=== PATIENT | male | born 1950 | race Caucasian/White ===

== ENCOUNTER 2025-07-09 13:29 | Outpatient (CLI) | payer MEDICARE, SELFPAY ==
--- NOTE | ~2025-07-09 | PE_ITS ---
EXAMINATION: PET_PETPSMAST_PT DATE: 07/10/2025 08:49 INDICATION: Prostate cancer TECHNIQUE: 5.424 mCi of Illucix Ga-68([id number]) was administered i.v. Low dose computed tomography (CT) images were acquired from the base of the brain to the base of the brain to the proximal thighs for attenuation correction and anatomic localization. Positron emission tomography (PET) images were acquired in the same distribution beginning 66 minutes after injection. Images including fused PET/CT images were reconstructed in axial, coronal, and sagittal planes. Automated exposure control technique was employed. The dose-length product was 1041.85mGy-cm. COMPARISON: None FINDINGS: Head/neck: Typical pattern of physiologic increased activity in the lacrimal, parotid and submandibular glands as well as along the mucosa of the nasal and oral cavities, pharynx and hypopharynx. No pathologically enlarged cervical lymphadenopathy or suspicious foci of increased uptake in the visualized head or neck. Chest: Mild basilar and dependent atelectasis in both lungs. No suspicious pulmonary nodules, pneumonia, pulmonary edema or pleural effusion. Cardia megaly. No pericardial effusion. Thoracic aorta is normal in caliber. No pathologically enlarged or PSMA avid thoracic lymphadenopathy. Abdomen/pelvis/proximal thighs: Physiologic renal accumulation and excretion of activity in the kidneys, bladder and along portions of ureters. 4 mm nonobstructing stone at the upper pole of the left kidney. Prostatomegaly measuring 4.4 x 3.9 cm. There is mild increased uptake in the posterior peripheral zones with maximal SUV of 4.1 on the left and 3.2 on the right. Normal degree and slightly heterogenous pattern of increased uptake throughout the liver and spleen without radiologic correlate or dominant PSMA avid lesion. The gallbladder, pancreas and bilateral adrenal glands are normal. Moderate uptake scattered throughout the bowels with typical duodenal and proximal jejunal predominance and without radiologic correlate, also likely physiologic. Mild diverticulosis along the descending and sigmoid colon without adjacent from trace stranding to suggest diverticulitis. Normal appendix. No other abnormal foci of increased uptake or pathologically enlarged lymphadenopathy in the abdomen, pelvis or proximal thighs. Musculoskeletal: No suspicious lytic, blastic or abnormally PSMA avid bone lesions. IMPRESSION: 1. Mild increased uptake in the posterior aspect of the enlarged prostate which prostate cancer. No evident metastatic disease although sensitivity may be decreased given the low level of activity in the prostate. Reviewed, dictated and finalized at location A. IMPRESSION: 1. Mild increased uptake in the posterior aspect of the enlarged prostate which prostate cancer. No evident metastatic disease although sensitivity may be dec reased given the low level of activity in the prostate.
--- OUTSIDE RECORDS SUMMARY | 2025-07-09 13:49 | XMS_ITS | Clinical Summary ---
Author Organization [facility] Medical Office Building A Address [address] [place] [address] Care Team Providers Care Stopper Maker Name Role Phone Rainer Landry MD Primary Care Provider + Allergies No known active allergies Medications diclofenac DR (VOLTAREN) 75 mg EC tablet take 1 tablet by oral route 2 times every day 0 0 11/24/2016 Active Encounters Date Type Department Care Team Description 06/03/2025 7:16 AM CDT - 06/03/2025 11:59 PM CDT Hospital Encounter [address] [address] Microscopic hematuria Discharge Disposition: Discharge to home or self care 06/02/[address] [address] [place], January D. 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 Gender Identity Male 04/05/2021 8:17 AM CDT Sexual Orientation Not on file Obstetrics History Last Filed Vital Signs Vital Sign Reading Time Taken Comments Blood Pressure - - Pulse - - Temperature - - Respiratory Rate - - Oxygen Saturation - - Inhaled Oxygen Concentration - - Weight 84.2 kg (185 lb 9.6 oz) 11/24/2016 9:39 A M ANTISQUEAK APPLIER Height 174 cm (5' 8.5) 11/24/2016 9:39 AM ANTISQUEAK APPLIER Body Mass Index 27.81 11/24/2016 9:39 AM ANTISQUEAK APPLIER Plan of Treatment Health Maintenance Due Date Last Done Comments Colon Cancer Screening-Colonoscopy 1950 Depression Screening 1952 Fall Risk Assessment 1950 Hepatitis C Screening 1950 DTaP/Tdap/Td Vaccine (1 - Tdap) 1963 Hepatitis B Screening 1970 Pneumococcal vaccine 65+ (1 of 1 - PCV) 2002 Zoster Vaccine (1 of 2) 2002 Well Visit 65+ 2017 Influenza Vaccine (#1) 2025 07/22/2019, 2017 Prostate Cancer Screening-PSA Discontinued 02/06/2019 Abdominal Aortic Aneurysm (AAA) Screen Completed , 02/06/2019 Procedures Procedure Name Priority Date/Time Associated Diagnosis Comments CT UROGRAM Schedule Routine, Read Routine (OP Routine) 06/03/2025 8:14 AM CDT Microscopic hematuria CT ABDOMEN PELVIS WO CONTRAST Schedule Routine, Read Routine (OP Routine) 04/08/2021 2:50 PM CDT Abdominal pain, unspecified abdominal location PSA SCREEN Routine 02/06/2019 3:07 PM CDT from Last 3 Months or Most Recently Relevant to Health Maintenance Results * CT Urogram W Contrast No 3D (06/03/2025 8:14 AM CDT) Anatomical Region Laterality Modality Body N/A Computed Tomogra phy 06/21/2025 7:33 PM CDT Narrative 06/21/2025 7:42 PM CDT EXAM DESCRIPTION: CT UROGRAM W CONTRAST NO 3D REASON FOR STUDY: Microscopic Hematuria Pt reports episode of microscopic hematuria, no other complaints, hx of prostate cancer TECHNIQUE: Precontrast images of the abdomen. Abdomen and pelvis images with intravenous and without oral contrast using helical scanning technique with dynamic intravenous contrast injection. Corticomedullary, nephrographic, excretory phase images were acquired. Reconstructed coronal and sagittal MPR images reviewed. All images stored on PACS. Automated exposure control was used as a dose optimization technique for this examination. CONTRAST TYPE/DOSE: 75mL of IOVERSOL 350 MG IODINE/ML INTRAVENOUS SYRINGE injected via intravenous COMPARISON: 04/08/2021 described liver cyst and hemangioma. Urinary bladder wall thickening prostate enlargement FINDINGS: URINARY TRACT: Pre enhanced images show a mid left renal stone 5 mm and calyx new since previous study. Otherwise pre enhanced images of the kidneys are normal. No calcifications seen along the course of the ureters. There is diffuse urinary bladder wall thickening and prostate enlargement with prostatic calculi midline. Postcontrast nephrogram phase shows normal enhancement. A few small benign renal cysts. The collecting system on the pyelogram phase is smooth and normal with no uro epithelial abnormalities. The renal pelvis and ureters are not dilated. 5 minutes delayed images show contrast in the urinary bladder confirming thickening of the delgado and there is also median lobe extension into the bladder base, correlate with PSA. Ureters are seen all the way down to the bladder appear unremarkable. ABDOMEN/PELVIS: Lung bases are clear. There is a 1.8 cm low attenuating lesion in the right hepatic lobe which appears isodense on the delayed images probably a small hemangioma. Unchanged. Liver and spleen are nonenlarged. No gallstones. Stomach over distended with fluid. Pancreas enhances uniformly. Aorta normal in caliber with calcific plaque. No adrenal masses. The stomach otherwise normal. Small bowel is nondilated. No bowel wall thickening. Appendix normal. Stool pattern normal. No diverticulitis. No adenopathy in the abdomen or pelvis. No ascites or ventral hernia of significance. Bony structures show osteopenia. IMPRESSION: 1. 5 mm stone in the calyx of the mid left kidney otherwise normal urinary tracts including ureters.. Bladder has mild diffuse thickening and the prostate is enlarged particularly the median lobe. Prostatism is suspected. Correlate with PSA. Prostate appeared enlarged on the 04/08/2021 study. 2. No other significant abnormalities THIS IS AN ELECTRONICALLY VERIFIED FINAL REPORT 06/21/2025 7:42 PM - Electronically signed by Samm Julien M.D. DA: DEONTE Report ID: [id number] Reading Location: [place] [address] Procedure Note Samm Julien MD - 06/21/2025 EXAM DESCRIPTION: CT UROGRAM W CONTRAST NO 3D REASON FOR STUDY: Microscopic Hematuria Pt reports episode of microscopic hematuria, no other complaints, hx of prostate cancer TECHNIQUE: Precontrast images of the abdomen. Abdomen and pelvis imageswith intravenous and without oral contrast using helical scanning techniquewith dynamic intravenous contrast injection. Corticomedullary, nephrographic, excretory phase images were acquired. Reconstructed coronal and sagittalMPR images reviewed. All images stored on PACS. Automated exposure control was used as a dose optimization technique forthis examination. CONTRAST TYPE/DOSE: 75mL of IOVERSOL 350 MG IODINE/ML INTRAVENOUSSYRINGE injected via intravenous COMPARISON: 04/08/2021 described liver cyst and hemangioma. Urinarybladder wall thickening prostate enlargement FINDINGS: URINARY TRACT: Pre enhanced images show a mid left renal stone 5 mm and calyx new since previous study. Otherwise pre enhanced images of the kidneys are normal.No calcifications seen along the course of the ureters. There is diffuseurinary bladder wall thickening and prostate enlargement with prostatic calculi midline. Postcontrast nephrogram phase shows normal enhancement. A few smallbenign renal cysts. The collecting system on the pyelogram phase is smooth and normal with no uro epithelial abnormalities. The renal pelvis and uretersare not dilated. 5 minutes delayed images show contrast in the urinarybladder confirming thickening of the delgado and there is also median lobe extension into the bladder base, correlate with PSA. Ureters are seen all the waydown to the bladder appear unremarkable. ABDOMEN/PELVIS: Lung bases are clear. There is a 1.8 cm low attenuating lesion in theright hepatic lobe which appears isodense on the delayed images probably a small hemangioma. Unchanged. Liver and spleen are nonenlarged. No gallstones. Stomach over distended with fluid. Pancreas enhances uniformly. Aortanormal in caliber with calcific plaque. No adrenal masses. The stomach otherwise normal. Small bowel is nondilated. No bowel wall thickening. Appendix normal. Stool pattern normal. No diverticulitis. No adenopathy in the abdomen or pelvis. No ascites or ventral hernia of significance. Bony structures show osteopenia. IMPRESSION: 1. 5 mm stone in the calyx of the mid left kidney otherwise normalurinary tracts including ureters.. Bladder has mild diffuse thickening and the prostate is enlarged particularly the median lobe. Prostatism issuspected. Correlate with PSA. Prostate appeared enlarged on the 04/08/2021 study. 2. No other significant abnormalities THIS IS AN ELECTRONICALLY VERIFIED FINAL REPORT 06/21/2025 7:42 PM - Electronically signed by Samm Julien M.D. DA: DEONTE Report ID: [id number] Reading Location: [place] [address] Elian Connors MD IMG CT PROCEDURES Final Result * CT Abdomen Pelvis WO Contrast (04/08/2021 2:50 PM CDT) Anatomical Region Laterality Modality Body N/A Computed Tomogra phy 04/08/2021 3:22 PM CDT Impressions 04/08/2021 3:22 PM CDT 1. Hemangioma and cysts of the liver unchanged from previous imaging. 2. Normal appendix. 3. Mild thickening of the wall of the urinary bladder. This may be due to bladder outlet obstruction or cystitis. 4. Mild prostatomegaly with possibility of a nodule and calcification correlate with additional prostate ultrasound imaging and/or PSA values Electronically signed by: Isra Prather M.D. Narrative 04/08/2021 3:22 PM CDT EXAMINATION: CT ABDOMEN PELVIS WO CONTRAST DATE: 04/08/2021 2:30 PM COMPARISON: 02/06/2019 MR imaging for 2219 TECHNIQUE: 2-D CT of the abdomen and pelvis was obtained without contrast FINDINGS: Scans through the lung bases are unremarkable. The heart size is normal. No evidence of a pleural effusion. There is a small cyst in the dome of the liver. There is an vague hypodense lesion in the anterior left lobe of the liver which is consistent with the previously demonstrated hemangioma. There is a 2.5 cm low-density lesion in the right lobe of the liver previously documented as a cyst. The gallbladder, pancreas and spleen appear normal. No evidence of free air or free fluid in the abdomen. The kidneys and adrenal glands appear normal. No evidence of retroperitoneal adenopathy. The abdominal aorta is unremarkable. The appendix is normal. No evidence of bowel obstruction. No inflammatory lesion is seen. There is diffuse thickening of the wall of the urinary bladder. There are calcifications within a moderately enlarged prostate gland. The calcifications are forming a rim-like outline that could be the margin of a median lobe nodule. No significant bony abnormality is seen. Procedure Note Isra Prather MD - 04/08/2021 EXAMINATION: CT ABDOMEN PELVIS WO CONTRAST DATE: 04/08/2021 2:30 PM COMPARISON: 02/06/2019 MR imaging for 2219 TECHNIQUE: 2-D CT of the abdomen and pelvis was obtained without contrast FINDINGS: Scans through the lung bases are unremarkable. The heart size is normal. No evidence of a pleural effusion. There is a small cyst in the dome of the liver. There is an vague hypodense lesion in the anterior left lobe of the liver which is consistent with the previously demonstrated hemangioma. There is a 2.5 cm low-density lesion in the right lobe of the liver previously documented as a cyst. The gallbladder, pancreas and spleen appear normal. No evidence of free air or free fluid in the abdomen. The kidneys and adrenal glands appear normal. No evidence of retroperitoneal adenopathy. The abdominal aorta is unremarkable. The appendix is normal. No evidence of bowel obstruction. No inflammatory lesion is seen. There is diffuse thickening of the wall of the urinary bladder. There are calcifications within a moderately enlarged prostate gland. The calcifications are forming a rim-like outline that could be the margin of a median lobe nodule. No significant bony abnormality is seen. IMPRESSION: 1. Hemangioma and cysts of the liver unchanged from previous imaging. 2. Normal appendix. 3. Mild thickening of the wall of the urinary bladder. This may be due to bladder outlet obstruction or cystitis. 4. Mild prostatomegaly with possibility of a nodule and calcification correlate with additional prostate ultrasound imaging and/or PSA values Electronically signed by: Isra Prather M.D. Rainer Landry MD IMG CT PROCEDURES Final Result * (ABNORMAL) PSA screen (02/06/2019 3:07 PM CDT) PSA-Total 6.31(H) <=5.40 ng/mL HILARY JIMÉNEZ Comment: Interpretive Data AGE SEX REFERENCE INTERVAL 0 minutes-150 years Female None 0 minutes-49 years Male None 50-59 years Male 0-3.90 60-69 years Male 0-5.40 70-79 years Male 0-6.20 80-150 years Male 0-6.20 Current interpretive data last revised 2018. Blood specimen (specimen) 02/06/2019 3:07 PM CDT 02/06/2019 3:07 PM CDT Narrative HILARY JIMÉNEZ - 02/06/2019 4:13 PM CDT us Rainer Landry MD LAB BLOOD ORDERABLES Fin al Result [facility] [id number] Department [place] [address] from Last 3 Months or Most Recently Relevant to Health Maintenance Insurance MEDICARE COMMERCIAL GENERIC MEDICARE [facility] Address: [address] [address] [place] [address] COMMERCIAL GENERIC [employer] MEDICARE GOLD AETNA MEDICARE GOLD Care Teams Stopper Maker Relationship Specialty [place] [address] [address] [facility] [address] [place] [address] PCP - General 01/05/10
--- OUTSIDE RECORDS SUMMARY | 2025-07-09 13:49 | XMS_ITS | Encounter Summary ---
Author Organization [facility] Healthcare Address [address] [place] [address] Care Team Providers Care Outpatient Dietitian Name Role Phone Rainer Landry MD Primary Care Provider + Reason for Referral * Diagnostic Imaging (Routine) - Closed Specialty Diagnoses / Procedures Referred By Contac t Referred To Contact Radiology Diagnoses Microscopic hematuria Procedures CT Urogram W Contrast No 3D CT ABDOMEN PELVIS W WO CONTRAST Elian Connors MD [address] [address] Phone: tel: fax: [address] [phone] Referral ID Status Reason Start Date Expiration Date Visits Re quested Visits Authorized [id number] Closed 05/19/2025 11/15/2025 1 1 Encounter Details Date Type Department Care Team (Late st Contact Info) Description 05/01/2025 Community Orders [facility] EpicCare Link Elian Connors MD [address] [address] Microscopic hematuria (Primary Dx) Social History Tobacco Use Types Packs/Day Years Used Date Smoking Tobacco: Former Alcohol Use Standard Drinks/Week Comments Yes 0 (1 standard drink = 0.6 oz pur e alcohol) Sex and Gender Information Value Date Recorded Sex Assigned at Not on file Legal Sex 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 DA: DEONTE Report ID: [id number] Reading Location: [place] [address] Procedure Note Samm Julien MD - 06/21/2025 [...] Samm Julien M.D. DA: DEONTE Report ID: [id number] Reading Location: [place] [address] Elian Connors MD IMG CT PROCEDURES Final Result documented in this encounter Visit Diagnoses Diagnosis Microscopic hematuria- Primary Microscopic hematuria documented in this encounter Care Teams Outpatient Dietitian Relationship Specialty [place] [id number] [facility] [address] [place] [address] PCP - General 01/05/10 documented as of this encounter
== END 2025-07-09 13:30 | disposition home or self-care (01) ==
PROVIDERS: PCP Internal Medicine Geriatric Medicine; Visit Provider Urology
DX: C61 Malignant neoplasm of prostate (principal)
CPT/HCPCS: 78815; A9596